=== PATIENT | female | born 1995 | race Caucasian/White ===

== ENCOUNTER 2017-10-01 01:53 | Emergency (ER) | payer SELFPAY ==
[2017-10-01] MEDS ORDERED: Sodium Chloride 0.9% 10 ML Syringe FLUSH PRN (02:02)
[2017-10-01] MEDS ORDERED: Ondansetron 4 MG/2 ML SDV IVPUSH ONE ×2 (02:02→03:27)
--- NOTE | 2017-10-01 02:08 | EDM.PDOC ---
ED HPI GENERAL MEDICAL PROBLEM - General Stated Complaint: MED[facility] Time Seen by Provider: 10/01/17 02:02 Source of Information: Reports: Patient, RN Notes Reviewed History Limitations: Reports: No Limitations - History of Present Illness INITIAL COMMENTS - FREE TEXT/NARRATIVE: 22-year-old female presents emergency department today via EMS services she was picked up at the [facility] she has vomited multiple times has been consuming large amounts of alcohol she is arousable does communicate but this obviously impaired difficult to obtain review of systems or past medical history - Related Data Allergies Allergy/AdvReac Type Severity Reaction Status Date / Time No Known Allergies Allergy Verified 10/01/17 02:52 Home Meds: Home Meds NK [No Known Home Meds] 10/01/17 [History] Past Medical History - Past Health History Medical/Surgical History: Denies Medical/Surgical History ED ROS GENERAL - Review of Systems Review Of Systems: ROS reveals no pertinent complaints other than HPI. - Physical Exam Exam: See Below Exam Limited By: Intoxication General Appearance: Alert, Other (GCS of 13) Eye Exam: Bilateral Eye: Normal Inspection Head Exam: Atraumatic, Normocephalic Neck: Normal Inspection, Supple, Non-Tender, Full Range of Motion Respiratory/Chest: No Respiratory Distress, Lungs Clear, Normal Breath Sounds, No Accessory Muscle Use Cardiovascular: Regular Rate, Rhythm, No Murmur GI/Abdominal: Soft, Non-Tender Course - Vital Signs Last Recorded V/S: Last Vital Signs Temp 97.5 F 10/01/17 02:00 Pulse 119 H 10/01/17 02:00 Resp 22 H 10/01/17 02:00 BP 120/84 10/01/17 02:00 Pulse Ox 98 10/01/17 02:00 - Orders/Labs/Meds Orders: Active Orders 24 hr Category Date Time Status Peripheral IV Care [RC] . DIRECTED Care 10/01/17 02:03 Active DRUG SCREEN, URINE [URCHEM] Stat Lab 10/01/17 02:26 Ordered Lactated Ringers [Ringers, Lactated] 1,000 ml Med 10/01/17 02:15 Active IV ASDIRECTED Sodium Chloride 0.9% [Saline Flush] Med 10/01/17 02:02 Active 10 ml FLUSH ASDIRECTED PRN Peripheral IV Insertion Adult [OM.PC] Urgent Oth 10/01/17 02:02 Ordered Medication Orders Lactated Ringer's (Ringers, Lactated) 1,000 mls @ 999 mls/hr IV ASDIRECTED LISA Last Admin: 10/01/17 02:15 Dose: 999 mls/hr Sodium Chloride (Saline Flush) 10 ml FLUSH ASDIRECTED PRN PRN Reason: Keep Vein Open Last Admin: 10/01/17 02:15 Dose: 10 ml Labs: Laboratory Tests 10/01/17 10/01/17 10/01/17 Range/Units 02:15 02:15 02:15 WBC 11.6 H (4.5-11.0) K/uL RBC 4.22 (3.30-5.50) M/uL Hgb 12.8 (12.0-15.0) g/dL Hct 37.5 (36.0-48.0) % MCV 89 (80-98) fL MCH 30 (27-31) pg MCHC 34 (32-36) % Plt Count 278 (150-400) K/uL Neut % (Auto) 78 H (36-66) % Lymph % (Auto) 16 L (24-44) % Amador % (Auto) 5 (2-6) % Eos % (Auto) 1 L (2-4) % Baso % (Auto) 0 (0-1) % Sodium 140 (140-148) mmol/L Potassium 3.7 (3.6-5.2) mmol/L Chloride 104 (100-108) mmol/L Carbon Dioxide 25 (21-32) mmol/L Anion Gap 11.3 (5.0-14.0) mmol/L BUN 5 L (7-18) mg/dL Creatinine 0.8 (0.6-1.0) mg/dL Est Cr Clr Drug Dosing TNP Estimated GFR (MDRD) > 60 (>60) Glucose 95 (74-106) mg/dL Calcium 8.9 (8.5-10.1) mg/dL Total Bilirubin 0.3 (0.2-1.0) mg/dL AST 30 (15-37) U/L ALT 30 (12-78) U/L Alkaline Phosphatase 58 (46-116) U/L Total Protein 7.4 (6.4-8.2) g/dL Albumin 4.3 (3.4-5.0) g/dL Globulin 3.1 (2.3-3.5) g/dL Albumin/Globulin Ratio 1.4 (1.2-2.2) Salicylates 0.6 L (2.0-20.0) mg/dL Acetaminophen 0.0 L (10.0-30.0) ug/mL Ethyl Alcohol mg/dL 10/01/17 Range/Units 02:15 WBC (4.5-11.0) K/uL RBC (3.30-5.50) M/uL Hgb (12.0-15.0) g/dL Hct (36.0-48.0) % MCV (80-98) fL MCH (27-31) pg MCHC (32-36) % Plt Count (150-400) K/uL Neut % (Auto) (36-66) % Lymph % (Auto) (24-44) % Amador % (Auto) (2-6) % Eos % (Auto) (2-4) % Baso % (Auto) (0-1) % Sodium (140-148) mmol/L Potassium (3.6-5.2) mmol/L Chloride (100-108) mmol/L Carbon Dioxide (21-32) mmol/L Anion Gap (5.0-14.0) mmol/L BUN (7-18) mg/dL Creatinine (0.6-1.0) mg/dL Est Cr Clr Drug Dosing Estimated GFR (MDRD) (>60) Glucose (74-106) mg/dL Calcium (8.5-10.1) mg/dL Total Bilirubin (0.2-1.0) mg/dL AST (15-37) U/L ALT (12-78) U/L Alkaline Phosphatase (46-116) U/L Total Protein (6.4-8.2) g/dL Albumin (3.4-5.0) g/dL Globulin (2.3-3.5) g/dL Albumin/Globulin Ratio (1.2-2.2) Salicylates (2.0-20.0) mg/dL Acetaminophen (10.0-30.0) ug/mL Ethyl Alcohol 321 mg/dL Meds: Medications Generic Name Dose Route Start Last Admin Trade Name Freq PRN Reason Stop Dose Admin Lactated Ringer's 1,000 mls @ 999 mls/hr 10/01/17 02:15 10/01/17 02:15 Ringers, Lactated IV 999 mls/hr ASDIRECTED LISA Administration Sodium Chloride 10 ml 10/01/17 02:02 10/01/17 02:15 Saline Flush FLUSH 10 ml ASDIRECTED PRN Administration Keep Vein Open Discontinued Medications Generic Name Dose Route Start Last Admin Trade Name Freq PRN Reason Stop Dose Admin Ondansetron HCl 4 mg 10/01/17 02:02 10/01/17 02:22 Zofran IVPUSH 10/01/17 02:03 4 mg ONETIME ONE Administration Departure - Departure Time of Disposition: 03:25 Disposition: Home, Self-Care 01 Condition: Good Clinical Impression: Intoxication - Discharge Information Referrals: PCP,None [Primary Care Provider] - Additional Instructions: Recommend refrain from alcohol, follow-up with primary care as needed - My Orders Last 24 Hours: My Active Orders 10/01/17 02:02 Sodium Chloride 0.9% [Saline Flush] 10 ml FLUSH ASDIRECTED PRN Peripheral IV Insertion Adult [OM.PC] Urgent 10/01/17 02:03 Peripheral IV Care [RC] . DIRECTED 10/01/17 02:15 Lactated Ringers [Ringers, Lactated] 1,000 ml IV ASDIRECTED 10/01/17 02:26 DRUG SCREEN, URINE [URCHEM] Stat - Assessment/Plan Last 24 Hours: My Active Orders 10/01/17 02:02 Sodium Chloride 0.9% [Saline Flush] 10 ml FLUSH ASDIRECTED PRN Peripheral IV Insertion Adult [OM.PC] Urgent 10/01/17 02:03 Peripheral IV Care [RC] . DIRECTED 10/01/17 02:15 Lactated Ringers [Ringers, Lactated] 1,000 ml IV ASDIRECTED 10/01/17 02:26 DRUG SCREEN, URINE [URCHEM] Stat Plan: Assessment Acuity = acute Site and laterality = intoxication Etiology = alcohol Manifestations = none Location of injury = Home Lab values = CBC, CMP within normal limits alcohol level 321 urine not provided Plan Follow-up with primary care as needed recommend refrain from alcohol, she is discharged to custody of her companions there is one sober tour driver among them they do have a home to stay in This note was dictated using dragon voice recognition software please call with any questions on syntax or [email or web address].
[2017-10-01] MEDS ORDERED: Lactated Ringers 1,000 ML IV SCH (02:15)
== END 2017-10-01 03:35 | disposition home or self-care (01) ==
LOC: JP.ED 01:53
DX: F10.129 Alcohol abuse with intoxication, unspecified (principal); Y90.8 Blood alcohol level of 240 mg/100 ml or more
CPT/HCPCS: 36415; 80053; 85025; 96361; 96374; 96376; 99284; G0480; J2405; J7050; J7120